=== PATIENT | male | born 1940 | race Caucasian/White ===

== ENCOUNTER 2023-11-14 14:05 | Inpatient (IN) | payer MEDICARE ==
[2023-11-14 15:06] VITALS: BMI 23.8
[2023-11-14] MEDS: traMADol HCl 50 MG TAB PO SCH (16:18)
[2023-11-14] MEDS ORDERED: Lantiseptic Ointment 130 GM JAR TOP PRN (17:44)
[2023-11-14] MEDS: Lantiseptic Ointment 130 GM JAR TOP SCH (21:41)
[2023-11-14] MEDS: Gabapentin 300 MG CAP PO SCH (21:41)
[2023-11-14] MEDS: Rosuvastatin 10 MG TAB PO SCH (21:41)
[2023-11-14] MEDS: Melatonin 3 MG TAB PO SCH (21:42)
[2023-11-15 00:23] LABS: Bilirubin Small (Negative); Blood, Urine Small (Negative); Glucose, Urine (Dipstick) Negative (Negative); Ketone, Urine Negative (Negative); Leukocyte Moderate (Negative); Nitrite Negative (Negative); Protein, Urine (Dipstick) Trace mg/dL (Neg-Trace); Urobilinogen 0.2 mg/dL (Less than 2); pH, Urine 5.5 (5.0-9.0)
[2023-11-15 00:26] LABS: Clarity Hazy (Clear)
[2023-11-15 00:27] LABS: Bacteria/HPF 1+ HPF (None Seen); Squamous Epithelial 0-3 HPF (0-3)
[2023-11-15] MEDS: Pantoprazole DR 40 MG TAB PO SCH (05:22)
[2023-11-15] MEDS: Levothyroxine Sodium 125 MCG TAB PO SCH (05:55)
[2023-11-15] MEDS: Aspirin 81 mg Enteric Coated Tablet PO SCH (08:50)
[2023-11-15] MEDS: Clopidogrel Bisulfate 75 MG TAB PO SCH (08:50)
[2023-11-15] MEDS: Polyethylene Glycol 3350 17 GM Packet PO SCH (08:52)
[2023-11-15] MEDS: Potassium Chloride 20 MEQ TAB PO SCH (08:52)
[2023-11-15] MEDS: Furosemide 20 MG TAB PO SCH (08:52)
[2023-11-15] MEDS: Gabapentin 300 MG CAP PO SCH (11:11)
[2023-11-15] MEDS: traMADol HCl 50 MG TAB PO PRN (21:42)
[2023-11-15] MEDS: Emollient 15 oz bottle 450 ML, Triamcinolone Acetonide 200 MG TOP SCH (21:43)
[2023-11-16] MEDS: Ferrous Sulfate 325 MG TAB PO SCH (08:36)
[2023-11-16] MEDS: Nystatin Cream 15 GM TUBE TOP SCH (21:13)
[2023-11-17] MEDS: Furosemide 20 MG TAB PO SCH ×2 (09:41→12:38)
[2023-11-17] MEDS: Potassium Bicarbonate/Cit Ac 20 MEQ TAB PO SCH (09:46)
[2023-11-17] MEDS: Tobramycin 0.3% Ophth Susp 5 ml Bottle R EYE SCH (11:11)
[2023-11-17] MEDS: Tobramycin 0.3% Ophth Susp 5 ml Bottle ONE (11:12)
[2023-11-17] MEDS: LevoFLOXacin 500 MG TAB PO SCH (20:06)
[2023-11-17] MEDS: Emollient 15 oz bottle 450 ML, Triamcinolone Acetonide 200 MG TOP PRN (20:08)
[2023-11-17] MEDS: Tobramycin 0.3% Ophth Susp 5 ml Bottle EA EYE SCH (20:30)
[2023-11-18] MEDS: Potassium Bicarbonate/Cit Ac 20 MEQ TAB PO SCH (10:01)
[2023-11-22] MEDS: Senokot S 8.6-50 MG TAB PO SCH (21:19)
[2023-11-22] MEDS: Mineral Oil ENEMA PR SCH (21:19)
[2023-11-23] MEDS: Tobramycin 0.3% Ophth Susp 5 ml Bottle ONE (01:39)
[2023-11-23] MEDS: Acetaminophen 500 MG TAB PO PRN (08:24)
[2023-11-23 18:33] LABS: #Eosinphils 0.3 thou/uL (0.0-0.7); #Lymphocytes 0.5 thou/uL (1.20-3.40); #Monocytes 0.5 thou/uL (0.11-0.59); #Neutrophils 4.1 thou/uL (1.40-6.50); %Basophils 0.6 % (0.0-1.0); %Eosinophils 5.7 % (0.0-10.0); %Lymphocytes 8.4 % (21.0-51.0); %Monocytes 8.7 % (0.0-10.0); %Neutrophils 76.7 % (42.0-75.0); Hemoglobin 7.3 g/dL (14.0-18.0); Mean Corpuscular HGB CONC 31.7 g/dL (32.0-36.0); Mean Corpuscular Hemoglobin 30.6 pg (27.0-31.0); Mean Corpuscular Volume 96.4 fl (78.0-98.0); Mean Platelet Volume 5.1 fL (7.4-10.4); Platelet Count 204 10x3/uL (130-400); RBC Distribution Width 16.4 % (11.5-14.5); Red Blood Cell (RBC) Count 2.39 mill/uL (4.70-6.10); White Blood Cell (WBC) Count 5.3 10x3/uL (4.8-10.8)
[2023-11-23 18:37] LABS: ALT (SGPT) 16 U/L (8-55); AST (SGOT) 12 U/L (5-34); Albumin 2.7 g/dL (3.4-4.8); Alkaline Phosphatase 87 U/L (40-110); Anion Gap 15 mmol/L (10-20); BUN (Urea Nitrogen) 30 mg/dL (8.4-25.7); Bilirubin, Total 0.3 mg/dL (0.2-1.2); Calc. Creatinine Clearance 45 mL/min (70-130); Calcium 8.3 mg/dL (7.8-10.44); Carbon Dioxide 22 mmol/L (23-31); Chloride 103 mmol/L (98-107); Estimated GFR 47; Globulin 2.8 g/dL (2.4-3.5); Glucose 131 mg/dL (83-110); Potassium 4.4 mmol/L (3.5-5.1); Protein, Total 5.5 g/dL (5.8-8.1); Sodium 136 mmol/L (136-145)
[2023-11-24] MEDS: LevoFLOXacin 500 MG TAB PO SCH (20:23)
[2023-11-24] MEDS: Erythromycin Base 0.5% Ophth Oint 3.5 gm Tube EA EYE SCH (20:31)
[2023-11-25] MEDS: Ferrous Sulfate 325 MG TAB PO SCH (07:55)
[2023-11-25] MEDS: Furosemide 20 MG TAB PO SCH (08:15)
[2023-11-26] MEDS: traMADol HCl 50 MG TAB PO PRN (00:33)
[2023-11-27 08:36] LABS: ALT (SGPT) 13 U/L (8-55); AST (SGOT) 13 U/L (5-34); Albumin 2.6 g/dL (3.4-4.8); Alkaline Phosphatase 90 U/L (40-110); Anion Gap 16 mmol/L (10-20); BUN (Urea Nitrogen) 33 mg/dL (8.4-25.7); Bilirubin, Total 0.4 mg/dL (0.2-1.2); Calc. Creatinine Clearance 56 mL/min (70-130); Calcium 8.5 mg/dL (7.8-10.44); Carbon Dioxide 22 mmol/L (23-31); Chloride 103 mmol/L (98-107); Estimated GFR 59; Globulin 2.8 g/dL (2.4-3.5); Glucose 108 mg/dL (83-110); Potassium 4.3 mmol/L (3.5-5.1); Protein, Total 5.4 g/dL (5.8-8.1); Sodium 137 mmol/L (136-145)
[2023-11-27 08:37] LABS: Hematocrit 21.6 % (42.0-52.0); Hemoglobin 6.7 g/dL (14.0-18.0); Mean Corpuscular HGB CONC 30.7 g/dL (32.0-36.0); Mean Corpuscular Hemoglobin 30.3 pg (27.0-31.0); Mean Corpuscular Volume 97.6 fl (78.0-98.0); Mean Platelet Volume 5.1 fL (7.4-10.4); Platelet Count 193 10x3/uL (130-400); RBC Distribution Width 16.9 % (11.5-14.5); Red Blood Cell (RBC) Count 2.27 mill/uL (4.70-6.10); White Blood Cell (WBC) Count 5.2 10x3/uL (4.8-10.8)
[2023-11-27 08:54] LABS: Band 2 % (5-11); MDiff Complete? YES; Manual Diff?? YES; Neutrophil 84 % (42-75)
[2023-11-27 08:55] LABS: Anisocytosis SLIGHT = 6-15 cells (100X) (0-5/hpf); Eosinophils 1 % (0-10); Lymphocytes 3 % (21-51); Metamyelocyte 1 % (0-0); Monocytes 8 % (0-10); Reactive Lymphocytes 1 % (0-10)
[2023-11-27 08:56] LABS: Hypochromia SLIGHT = 6-15 cells (100X) (0-5/hpf); Platelet Adequacy Comment Appears Adequate
[2023-11-27] MEDS: Furosemide 20 MG TAB PO SCH (09:27)
[2023-11-28 05:33] LABS: Band 3 % (5-11); Hematocrit 22.3 % (42.0-52.0); Hemoglobin 6.8 g/dL (14.0-18.0); Lymphocytes 4 % (21-51); MDiff Complete? YES; Mean Corpuscular HGB CONC 30.3 g/dL (32.0-36.0); Mean Corpuscular Hemoglobin 30.2 pg (27.0-31.0); Mean Corpuscular Volume 99.8 fl (78.0-98.0); Mean Platelet Volume 5.2 fL (7.4-10.4); Monocytes 18 % (0-10); Neutrophil 75 % (42-75); Platelet Count 206 10x3/uL (130-400); RBC Distribution Width 16.8 % (11.5-14.5); Red Blood Cell (RBC) Count 2.24 mill/uL (4.70-6.10); White Blood Cell (WBC) Count 6.2 10x3/uL (4.8-10.8)
[2023-11-28 05:43] LABS: ALT (SGPT) 14 U/L (8-55); AST (SGOT) 12 U/L (5-34); Albumin 2.6 g/dL (3.4-4.8); Alkaline Phosphatase 85 U/L (40-110); Anion Gap 16 mmol/L (10-20); BUN (Urea Nitrogen) 35 mg/dL (8.4-25.7); Bilirubin, Total 0.4 mg/dL (0.2-1.2); Calc. Creatinine Clearance 58 mL/min (70-130); Calcium 8.6 mg/dL (7.8-10.44); Carbon Dioxide 23 mmol/L (23-31); Chloride 103 mmol/L (98-107); Estimated GFR 61; Globulin 2.8 g/dL (2.4-3.5); Glucose 118 mg/dL (83-110); Potassium 4.4 mmol/L (3.5-5.1); Protein, Total 5.4 g/dL (5.8-8.1); Sodium 138 mmol/L (136-145)
[2023-11-28 07:33] VITALS: BMI 25.8
[2023-11-28] MEDS: Lidocaine 4% Topical Sol 50 ML BOT FS SCH (10:01)
[2023-11-28 12:04] LABS: Iron 17 ug/dL (65-175); Iron Binding Capacity, Total 174 mcg/dL (261-462)
[2023-11-28] MEDS ORDERED: Acetaminophen 500 MG TAB PO PRN (13:38)
[2023-11-28] MEDS ORDERED: traMADol HCl 50 MG TAB PO PRN (13:39)
[2023-11-28] MEDS ORDERED: Gabapentin 300 MG CAP PO SCH ×2 (15:00→21:00)
[2023-11-28 16:57] VITALS: BP 105/51; TEMP 98.3
[2023-11-28] MEDS: Azithromycin 500 MG in Sodium Chloride 0.9% 250 ML 250 ML IVPB SCH (17:00)
[2023-11-28] MEDS: cefTRIAXone\\ROCEPHIN 1 GM in Sodium Chloride 0.9% 100 ML IVPB SCH (17:00)
[2023-11-28] MEDS: traMADol HCl 50 MG TAB PO PRN (18:33)
[2023-11-29] MEDS ORDERED: Furosemide 20 MG TAB PO SCH (09:00)
[2023-11-29] MEDS ORDERED: Gabapentin 300 MG CAP PO SCH (12:00)
== END 2023-11-28 18:45 | disposition short-term general hospital (02) | DRG 947 ==
LOC: MADMS 14:05
PROVIDERS: ADMIT Family Medicine; ATTEND Family Medicine
DX: R53.81 Other malaise (principal); I50.23 Acute on chronic systolic (congestive) heart failure; J96.01 Acute respiratory failure with hypoxia; J69.0 Pneumonitis due to inhalation of food and vomit; G95.9 Disease of spinal cord, unspecified; N39.0 Urinary tract infection, site not specified; E03.9 Hypothyroidism, unspecified; Z66 Do not resuscitate; I11.0 Hypertensive heart disease with heart failure; I73.9 Peripheral vascular disease, unspecified; L89.619 Pressure ulcer of right heel, unspecified stage; L89.629 Pressure ulcer of left heel, unspecified stage; L89.152 Pressure ulcer of sacral region, stage 2; I95.9 Hypotension, unspecified; H10.30 Unspecified acute conjunctivitis, unspecified eye; B96.20 Unspecified Escherichia coli [E. coli] as the cause of diseases classified elsewhere; B96.5 Pseudomonas (aeruginosa) (mallei) (pseudomallei) as the cause of diseases classified elsewhere; D64.9 Anemia, unspecified; R13.12 Dysphagia, oropharyngeal phase; Z79.899 Other long term (current) drug therapy; Z79.82 Long term (current) use of aspirin; Z79.890 Hormone replacement therapy; Z89.421 Acquired absence of other right toe(s); Z98.49 Cataract extraction status, unspecified eye; Z98.890 Other specified postprocedural states
CPT/HCPCS: 36415; 71045; 80053; 81001; 82728; 83540; 83550; 83880; 85025; 85046; 87070; 87077; 87086; 87186; 87205; J0696; J3301

== ENCOUNTER 2023-12-03 15:54 | Inpatient (IN) | payer MEDICARE ==
[2023-12-03 16:32] VITALS: BMI 26.2
[2023-12-03] MEDS: traMADol HCl 50 MG TAB PO PRN (20:15)
[2023-12-03] MEDS: Melatonin 3 MG TAB PO PRN (20:17)
[2023-12-03] MEDS: Amoxicillin/Potassium Clav 500 MG TAB PO SCH (20:18)
[2023-12-03] MEDS: Gabapentin 300 MG CAP PO SCH (20:18)
[2023-12-03] MEDS: Senokot S 8.6-50 MG TAB PO SCH (20:18)
[2023-12-03] MEDS: Midodrine HCl 5 MG TAB PO SCH (20:19)
[2023-12-03] MEDS: Rosuvastatin 10 MG TAB PO SCH (20:20)
[2023-12-03] MEDS: Nystatin Cream 15 GM TUBE TOP SCH (20:21)
[2023-12-03] MEDS: Keri Lotion 15 oz BOT TOP SCH (20:28)
[2023-12-03] MEDS: Lantiseptic Ointment 130 GM JAR TOP SCH (20:29)
[2023-12-03] MEDS ORDERED: Cyanocobalamin 1000 MCG/ML VIAL IM SCH (21:00)
[2023-12-03] MEDS: Acetaminophen 500 MG TAB PO PRN (23:05)
[2023-12-04 05:09] LABS: #Eosinphils 0.3 thou/uL (0.0-0.7); #Lymphocytes 0.4 thou/uL (1.20-3.40); #Monocytes 0.5 thou/uL (0.11-0.59); #Neutrophils 4.2 thou/uL (1.40-6.50); %Basophils 0.8 % (0.0-1.0); %Eosinophils 6.2 % (0.0-10.0); %Lymphocytes 6.7 % (21.0-51.0); %Monocytes 8.6 % (0.0-10.0); %Neutrophils 77.8 % (42.0-75.0); Hematocrit 28.2 % (42.0-52.0); Hemoglobin 8.8 g/dL (14.0-18.0); Mean Corpuscular HGB CONC 31.1 g/dL (32.0-36.0); Mean Corpuscular Hemoglobin 30.4 pg (27.0-31.0); Mean Corpuscular Volume 97.7 fl (78.0-98.0); Mean Platelet Volume 4.9 fL (7.4-10.4); Platelet Count 240 10x3/uL (130-400); RBC Distribution Width 16.3 % (11.5-14.5); Red Blood Cell (RBC) Count 2.89 mill/uL (4.70-6.10); White Blood Cell (WBC) Count 5.5 10x3/uL (4.8-10.8)
[2023-12-04 05:23] LABS: ALT (SGPT) 10 U/L (8-55); AST (SGOT) 12 U/L (5-34); Albumin 2.7 g/dL (3.4-4.8); Alkaline Phosphatase 80 U/L (40-110); Anion Gap 17 mmol/L (10-20); BUN (Urea Nitrogen) 25 mg/dL (8.4-25.7); Bilirubin, Total 0.3 mg/dL (0.2-1.2); Calc. Creatinine Clearance 72 mL/min (70-130); Calcium 8.4 mg/dL (7.8-10.44); Carbon Dioxide 26 mmol/L (23-31); Chloride 102 mmol/L (98-107); Estimated GFR 85; Globulin 2.6 g/dL (2.4-3.5); Glucose 106 mg/dL (83-110); Potassium 3.7 mmol/L (3.5-5.1); Protein, Total 5.3 g/dL (5.8-8.1); Sodium 141 mmol/L (136-145)
[2023-12-04] MEDS: Levothyroxine Sodium 125 MCG TAB PO SCH (05:31)
[2023-12-04] MEDS: Furosemide 40 MG (4 mL) VIAL SLOW IVP SCH (05:31)
[2023-12-04] MEDS: Metolazone 5 MG TAB PO SCH (08:28)
[2023-12-04] MEDS: Potassium Chloride 20 MEQ TAB PO SCH (08:29)
[2023-12-04] MEDS: Pantoprazole DR 40 MG TAB PO SCH (08:29)
[2023-12-04] MEDS: Clopidogrel Bisulfate 75 MG TAB PO SCH (08:29)
[2023-12-04] MEDS: Aspirin 81 mg Enteric Coated Tablet PO SCH (08:29)
[2023-12-04] MEDS ORDERED: Metolazone 5 MG TAB PO SCH (08:30)
[2023-12-04] MEDS: Gabapentin 300 MG CAP PO SCH (12:31)
[2023-12-04 20:16] LABS: Bilirubin Negative (Negative); Blood, Urine Moderate (Negative); Glucose, Urine (Dipstick) Negative (Negative); Ketone, Urine Negative (Negative); Leukocyte Negative (Negative); Nitrite Negative (Negative); Protein, Urine (Dipstick) Negative (Neg-Trace); Specific Gravity, Urine 1.015 (1.005-1.030); Urobilinogen 0.2 mg/dL (Less than 2); pH, Urine 5.5 (5.0-9.0)
[2023-12-04 20:24] LABS: Clarity Slightly Cloudy (Clear); RBC/HPF 21-50 HPF (0-3)
[2023-12-04 20:25] LABS: Bacteria/HPF Rare-Few HPF (None Seen); Squamous Epithelial 0-3 HPF (0-3); WBC/HPF 0-3 HPF (0-3)
[2023-12-05] MEDS: Ferrous Sulfate 325 MG TAB PO SCH (08:25)
[2023-12-05] MEDS: Artificial Tear Ophth Sol 15 ML BOT EA EYE PRN (12:57)
[2023-12-05] MEDS: Gabapentin 300 MG CAP PO SCH (20:14)
[2023-12-06] MEDS: Ondansetron ODT 4 MG TAB PO PRN (13:05)
[2023-12-08 06:26] LABS: Anion Gap 15 mmol/L (10-20); BUN (Urea Nitrogen) 47 mg/dL (8.4-25.7); Calc. Creatinine Clearance 61 mL/min (70-130); Calcium 8.9 mg/dL (7.8-10.44); Carbon Dioxide 33 mmol/L (23-31); Chloride 89 mmol/L (98-107); Estimated GFR 70; Glucose 104 mg/dL (83-110); Potassium 3.4 mmol/L (3.5-5.1); Sodium 134 mmol/L (136-145)
[2023-12-08 06:35] LABS: Hematocrit 27.8 % (42.0-52.0); Hemoglobin 8.9 g/dL (14.0-18.0); Mean Corpuscular Hemoglobin 31.3 pg (27.0-31.0); Mean Corpuscular Volume 97.7 fl (78.0-98.0); Mean Platelet Volume 6.2 fL (7.4-10.4); Platelet Count 200 10x3/uL (130-400); RBC Distribution Width 16.1 % (11.5-14.5); Red Blood Cell (RBC) Count 2.85 mill/uL (4.70-6.10); White Blood Cell (WBC) Count 5.5 10x3/uL (4.8-10.8)
[2023-12-08 06:49] LABS: Band 2 % (5-11); Lymphocytes 10 % (21-51); MDiff Complete? YES; Manual Diff?? YES; Neutrophil 66 % (42-75)
[2023-12-08 06:50] LABS: Anisocytosis SLIGHT = 6-15 cells (100X) (0-5/hpf); Eosinophils 9 % (0-10); Monocytes 13 % (0-10); Platelet Adequacy Comment Appears Adequate
[2023-12-08] MEDS: Potassium Bicarbonate/Cit Ac 20 MEQ TAB PO SCH (09:42)
[2023-12-08] MEDS: Potassium Chloride 20 MEQ TAB PO SCH (09:50)
[2023-12-08] MEDS ORDERED: traMADol HCl 50 MG TAB PO PRN (13:26)
[2023-12-08] MEDS: traMADol HCl 50 MG TAB PO PRN (20:43)
[2023-12-09] MEDS ORDERED: Potassium Chloride 20 MEQ TAB PO SCH (08:00)
[2023-12-09] MEDS: Fluticasone Propionate Nasal Spray 16 gm Bottle NASAL PRN (08:34)
[2023-12-09] MEDS: Erythromycin Base 0.5% Ophth Oint 3.5 gm Tube EA EYE SCH (08:35)
[2023-12-09] MEDS: Potassium Bicarbonate/Cit Ac 20 MEQ TAB PO SCH (08:35)
[2023-12-10] MEDS: Polyethylene Glycol 3350 17 GM Packet PO PRN (08:13)
[2023-12-11 06:51] LABS: ALT (SGPT) 33 U/L (8-55); AST (SGOT) 28 U/L (5-34); Albumin 2.9 g/dL (3.4-4.8); Alkaline Phosphatase 105 U/L (40-110); Anion Gap 22 mmol/L (10-20); BUN (Urea Nitrogen) 59 mg/dL (8.4-25.7); Bilirubin, Total 0.6 mg/dL (0.2-1.2); Calc. Creatinine Clearance 46 mL/min (70-130); Calcium 9.3 mg/dL (7.8-10.44); Carbon Dioxide 31 mmol/L (23-31); Chloride 87 mmol/L (98-107); Estimated GFR 54; Globulin 3.2 g/dL (2.4-3.5); Glucose 105 mg/dL (83-110); Potassium 3.6 mmol/L (3.5-5.1); Protein, Total 6.1 g/dL (5.8-8.1); Sodium 136 mmol/L (136-145)
[2023-12-12] MEDS: Furosemide 40 MG TAB PO SCH (14:27)
[2023-12-13] MEDS: hydrOXYzine 25 MG TAB PO PRN (20:27)
[2023-12-13] MEDS: Betamethasone 0.1% Cream 15 GM TUBE TOP SCH (20:28)
[2023-12-17 08:18] VITALS: BP 98/54; TEMP 97.7
== END 2023-12-17 13:06 | disposition hospice, home (50) | DRG 177 ==
LOC: MADMS 15:54
PROVIDERS: ADMIT Family Medicine; ATTEND Family Medicine
DX: J69.0 Pneumonitis due to inhalation of food and vomit (principal); I50.23 Acute on chronic systolic (congestive) heart failure; J96.01 Acute respiratory failure with hypoxia; R53.81 Other malaise; I11.0 Hypertensive heart disease with heart failure; I95.1 Orthostatic hypotension; E03.9 Hypothyroidism, unspecified; D64.9 Anemia, unspecified; I73.9 Peripheral vascular disease, unspecified; H10.33 Unspecified acute conjunctivitis, bilateral; Z79.899 Other long term (current) drug therapy; Z79.82 Long term (current) use of aspirin; Z98.49 Cataract extraction status, unspecified eye; Z66 Do not resuscitate
CPT/HCPCS: 36415; 71045; 80048; 80053; 81003; 81015; 83880; 85025; J1940; Q0162